=== PATIENT | male | born 1940 | race Caucasian/White ===

== ENCOUNTER 2017-06-03 02:23 | Inpatient (IN) | payer MEDICARE ==
[2015-09-15 10:52] VITALS: BMI 39.9
[~2017-06-03 02:23] MED LIST: ALEVE220 MG PO; APRISO0.375 GM PO; ASPIRIN 81 MG E81 MG PO; BETAPACE 80 MG80 MG PO; CELEXA40 MG PO; CYMBALTA30 MG PO; DURAGESIC1 PATCH .2 TD; DURAGESIC1 PATCH .3 TRANSDERM; ELIQUIS5 MG PO; FOLIC ACID1 MG PO; HCTZ25 MG PO; HYDROCHLOROTH12.5 M1 PO; HYDROCODONE-APA1 TAB PO; LEXAPRO20 MG PO; NAPROXEN250 MG PO; NEURONTIN 300300 MG PO; NEURONTIN600 MG PO; PEPCID20 MG PO; PLAVIX75 MG PO; PREDNISONE5 MG PO; PROAIR HFA8.5 GM INH; SULFAZINE EC500 MG PO; TOPROL XL25 MG PO; ZESTRIL40 MG PO; ZOCOR20 MG PO; ZOCOR80 MG PO
[2017-06-03 03:16] LABS: BASOPHILS 0.5 % (0-2); HEMATOCRIT 44.7 % (42.0-54.0); HEMOGLOBIN 14.9 g/dL (13.5-17.5); IMMATURE GRANULOCYTES 0.2 % (0-5); LYMPHOCYTES 13.7 % (15-50); MCH 30.7 pg (26.0-34.0); MCHC 33.3 g/dL (31.0-37.0); MEAN PLATELET VOLUME 9.7 fL (7.4-10.4); MONOCYTES 6.7 % (2-11); NEUTROPHILS 76.9 % (40-80); PLATELET COUNT 162 10x3/uL (130-400); RBC 4.86 10x6/uL (4.20-6.10); RDW 15.5 % (11.5-14.5); WBC 9.5 10x3/uL (4.8-10.8)
[2017-06-03 03:33] LABS: ALBUMIN 3.3 g/dL (3.4-5.0); ALKALINE PHOSPHATASE 59 U/L (46-116); ALT (SGPT) 45 U/L (10-68); BILIRUBIN - TOTAL 0.54 mg/dL (0.2-1.3); CALC OSMOLALITY 281 mosm/kg (275-300); CALCIUM 9.4 mg/dL (8.5-10.1); CARBON DIOXIDE 28.2 mmol/L (21.0-32.0); CHLORIDE - SERUM 102 mmol/L (98-107); CREATININE - SERUM 0.9 mg/dL (0.6-1.3); GLUCOSE 158 mg/dL (74-106); POTASSIUM - SERUM 4.6 mmol/L (3.5-5.1); PROTEIN - SERUM 7.3 g/dL (6.4-8.2); SODIUM 139 mmol/L (136-145); UREA NITROGEN 16 mg/dL (7-18); eGFR NON AFRICAN AMERICAN 87 mL/min (90-120)
== END 2017-06-03 11:05 | DRG 64 ==
LOC: D.ER 02:23 → D.EDHOLD 03:16
PROVIDERS: Emergency Medicine
DX: I63.9 Cerebral infarction, unspecified (principal); R40.2222 Coma scale, best verbal response, incomprehensible words, at arrival to emergency department; G81.94 Hemiplegia, unspecified affecting left nondominant side; R40.2362 Coma scale, best motor response, obeys commands, at arrival to emergency department; R40.2142 Coma scale, eyes open, spontaneous, at arrival to emergency department; I10 Essential (primary) hypertension

== ENCOUNTER → 2017-08-02 13:19 | Outpatient (CLI) | payer MEDICARE ==
[2015-09-15 10:52] VITALS: BMI 39.9
== END | disposition home or self-care (01) ==
LOC: D.RAD 13:19
DX: Z87.01 Personal history of pneumonia (recurrent) (principal)